=== PATIENT | male | born 1955 | race Caucasian/White ===

== ENCOUNTER 2025-01-25 10:30 | Inpatient (IN) | payer MEDICARE, MEDICAID ==
[~2025-01-25] VITALS: Ht 154.9 cm; Wt 45.8 kg
[2025-01-25 10:38] VITALS: TEMP 97.3
[2025-01-25] MEDS: ONDANSETRON HCL INJ 2MG/ML 2ML 2 MG/ML VIAL IV STA (11:08)
[2025-01-25 11:09] LABS: BASOPHILS % 0.8 % (0.0-1.0); EOSINOPHILS % 2.8 % (0.0-6.0); LYMPHOCYTES % 24.9 % (18.0-39.1); MONOCYTES % 6.3 % (4.4-11.3); NEUTROPHILS % 64.9 % (38.7-80.0); RED CELL DISTRIBUTION WIDTH 12.3 % (11.7-14.4)
[2025-01-25] MEDS: SODIUM CHLORIDE 0.9% 1000ML 1,000 ML IV STA ×2 (11:09)
[2025-01-25 11:21] LABS: INR 1.0
[2025-01-25 11:28] LABS: CORONAVIRUS COVID-19 AG NEGATIVE (NEGATIVE)
[2025-01-25 11:31] LABS: EST GLOMERULAR FILTRATION RATE 83.0 ML/MIN (>=60)
[2025-01-25] MEDS ORDERED: IOPAMIDOL 370 MG/ML 100 ML INFUS..BTL INJ ONE (11:47)
[2025-01-25 12:16] LABS: EPITHELIAL CELLS,URINE FEW /LPF; LEUKOCYTE ESTERASE ,URINE NEGATIVE (NEGATIVE); PROTEIN,URINE DIPSTICK NEGATIVE (NEGATIVE); URINE UROBILINOGEN 0.2 mg/dL (0.2 - 1); WBC,URINE (MAN) 0-5 /HPF (0-5)
[2025-01-25] MEDS ORDERED: ONDANSETRON HCL INJ 2MG/ML 2ML 2 MG/ML VIAL IV PRN (14:00)
[2025-01-25] MEDS: ASPIRIN 81 MG CHEW TAB PO ONE (14:59)
[2025-01-25] MEDS: SODIUM CHLORIDE 0.9% 1000ML 1,000 ML IV SCH (14:59)
[2025-01-25 15:00] VITALS: PULSE 86; RESP 16
[2025-01-25 16:28] VITALS: BP 146/80; PULSE 68; RESP 16; TEMP 99; O2SAT 100
[2025-01-25 20:00] VITALS: BP 140/71; PULSE 69; RESP 16; TEMP 98.9; O2SAT 100
[2025-01-25] MEDS: MELATONIN 5 MG TABLET PO SCH (20:48)
[2025-01-25 23:36] VITALS: BP 115/69; PULSE 53; RESP 18; TEMP 97.9; O2SAT 100
[2025-01-26 03:29] VITALS: BP 135/73; PULSE 51; RESP 18; TEMP 98.1; O2SAT 100
[2025-01-26 05:01] LABS: BASOPHILS % 1.1 % (0.0-1.0); EOSINOPHILS % 7.0 % (0.0-6.0); LYMPHOCYTES % 25.8 % (18.0-39.1); MONOCYTES % 6.7 % (4.4-11.3); NEUTROPHILS % 58.8 % (38.7-80.0); RED CELL DISTRIBUTION WIDTH 12.6 % (11.7-14.4)
[2025-01-26 05:31] LABS: EST GLOMERULAR FILTRATION RATE 85.0 ML/MIN (>=60)
[2025-01-26 07:32] VITALS: BP 132/65; PULSE 60; RESP 18; TEMP 97.6; O2SAT 100
[2025-01-26] MEDS: ASPIRIN 325 MG TAB EC PO SCH (09:01)
[2025-01-26 11:03] VITALS: BP 130/71; PULSE 56; RESP 17; TEMP 97.9; O2SAT 100
[2025-01-26 15:41] VITALS: BP 140/77; PULSE 59; RESP 16; TEMP 98.3; O2SAT 100
[2025-01-26 19:20] VITALS: BP 119/73; PULSE 97; RESP 18; TEMP 98.7; O2SAT 99
[2025-01-26 23:03] VITALS: BP 128/80; PULSE 55; RESP 18; TEMP 98.8; O2SAT 99
[2025-01-27 03:29] VITALS: BP 151/79; PULSE 60; RESP 18; TEMP 98.8; O2SAT 100
[2025-01-27 07:29] VITALS: BP 145/76; PULSE 58; RESP 17; TEMP 97.4; O2SAT 100
[2025-01-27 08:05] VITALS: BP 145/76; PULSE 58; RESP 17; TEMP 97.4; O2SAT 100
[2025-01-27 11:03] VITALS: BP 129/74; PULSE 70; RESP 17; TEMP 98.5; O2SAT 99
[2025-01-27 15:23] VITALS: BP 138/79; PULSE 64; RESP 18; TEMP 97.8; O2SAT 100
[2025-01-27 20:00] VITALS: BP 137/80; PULSE 52; RESP 16; TEMP 98.1; O2SAT 100
[2025-01-28] VITALS (7 sets, daily range): BP systolic 122–152; BP diastolic 68–85; PULSE 55–73; RESP 18–20; TEMP 97.5–98.8; O2SAT 98–100
[2025-01-28] MEDS ORDERED: GADOBENATE DIMEGLUMINE 1 ML IV ONE (13:44)
[2025-01-29] VITALS (7 sets, daily range): BP systolic 134–150; BP diastolic 75–87; PULSE 55–72; RESP 18–19; TEMP 97.7–98.7; O2SAT 95–100
[2025-01-29] MEDS ORDERED: no home meds (14:19)
[2025-01-30] VITALS: BP 127/72; PULSE 56; RESP 18; TEMP 98.2; O2SAT 100
[2025-01-30 04:00] VITALS: BP 142/79; PULSE 53; RESP 18; TEMP 97.9; O2SAT 100
[2025-01-30 05:13] LABS: BASOPHILS % 1.0 % (0.0-1.0); EOSINOPHILS % 5.9 % (0.0-6.0); LYMPHOCYTES % 25.0 % (18.0-39.1); MONOCYTES % 8.9 % (4.4-11.3); NEUTROPHILS % 59.0 % (38.7-80.0); RED CELL DISTRIBUTION WIDTH 12.2 % (11.7-14.4)
[2025-01-30 05:35] LABS: CHOL/HDL RATIO 3.6 (3.9-4.7); LDL CHOLESTEROL 82.0 MG/DL (60-130)
[2025-01-30 05:36] LABS: EST GLOMERULAR FILTRATION RATE 92.0 ML/MIN (>=60)
[2025-01-30 08:50] VITALS: BP_SYST 123; BP_SYST 135; BP_DIAS 71; BP_DIAS 75; PULSE 57; PULSE 71; RESP 18; TEMP 97.7; TEMP 98.4; O2SAT 98; O2SAT 99
[2025-01-30 09:00] VITALS: BP 135/71; PULSE 57; RESP 18; TEMP 97.7; O2SAT 99
[2025-01-30] MEDS ORDERED: SODIUM CHLORIDE 0.9% 100 ML ONE (13:57)
[2025-01-30] MEDS ORDERED: IOPAMIDOL 370 MG/ML 100 ML INFUS..BTL INJ ONE (13:57)
[2025-01-30] MEDS: CLOPIDOGREL BISULFATE 75 MG TAB PO ONE (13:58)
[2025-01-30 16:06] VITALS: BP 129/75; PULSE 65; RESP 20; TEMP 98.8; O2SAT 98
[2025-01-30 20:00] VITALS: BP_SYST 113; BP_SYST 158; BP_DIAS 58; BP_DIAS 61; PULSE 57; PULSE 91; RESP 20; TEMP 98.7; O2SAT 97; O2SAT 98
[2025-01-30] MEDS: ACETAMINOPHEN 325 MG TAB PO PRN (21:11)
[2025-01-30] MEDS: ATORVASTATIN 40 MG TAB PO SCH (21:12)
[2025-01-31 03:46] VITALS: BP 111/61; PULSE 87; RESP 20; TEMP 99; O2SAT 98
[2025-01-31 08:34] VITALS: BP 127/78; PULSE 57; RESP 18; TEMP 98.6; O2SAT 100
[2025-01-31 09:00] VITALS: BP 127/78; PULSE 57; RESP 18; TEMP 98.6; O2SAT 100
[2025-01-31] MEDS: CLOPIDOGREL BISULFATE 75 MG TAB PO SCH (09:13)
[2025-01-31 12:17] VITALS: BP 112/69; PULSE 65; RESP 20; TEMP 98.1; O2SAT 98
[2025-01-31] MEDS ORDERED: ATORVASTATIN CA40 MG PO (13:55)
[2025-01-31] MEDS ORDERED: ASPIRIN EC81 MG PO (13:55)
[2025-01-31] MEDS ORDERED: PLAVIX75 MG PO (13:55)
[2025-01-31 15:02] VITALS: BP 112/69; PULSE 65; RESP 20; TEMP 98.1; O2SAT 98
== END 2025-01-31 16:30 | disposition home or self-care (01) | DRG 64 ==
LOC: ER 10:47 → ERHOLD 14:07 → MED/SURG 15:47
PROVIDERS: ADMIT Internal Medicine; ATTEND Internal Medicine
DX: I63.89 Other cerebral infarction (principal); G93.41 Metabolic encephalopathy; G93.6 Cerebral edema; S32.019A Unspecified fracture of first lumbar vertebra, initial encounter for closed fracture; S32.029A Unspecified fracture of second lumbar vertebra, initial encounter for closed fracture; S22.069A Unspecified fracture of T7-T8 vertebra, initial encounter for closed fracture; S22.079A Unspecified fracture of T9-T10 vertebra, initial encounter for closed fracture; S22.089A Unspecified fracture of T11-T12 vertebra, initial encounter for closed fracture; Z68.1 Body mass index [BMI] 19.9 or less, adult; F05 Delirium due to known physiological condition; R62.7 Adult failure to thrive; E86.0 Dehydration; F01.50 Vascular dementia, unspecified severity, without behavioral disturbance, psychotic disturbance, mood disturbance, and anxiety; G93.9 Disorder of brain, unspecified; I10 Essential (primary) hypertension; J43.8 Other emphysema; E78.5 Hyperlipidemia, unspecified; R00.1 Bradycardia, unspecified; K40.90 Unilateral inguinal hernia, without obstruction or gangrene, not specified as recurrent; R63.4 Abnormal weight loss; Z71.3 Dietary counseling and surveillance; K21.00 Gastro-esophageal reflux disease with esophagitis, without bleeding; R91.1 Solitary pulmonary nodule; D64.9 Anemia, unspecified; R53.81 Other malaise; X58.XXXA Exposure to other specified factors, initial encounter
CPT/HCPCS: 36415; 70450; 70496; 70498; 70553; 71045; 71260; 74177; 80048; 80053; 80061; 81001; 82140; 82550; 83605; 83735; 84484; 85025; 85610; 85730; 87040; 87086; 93005; 93306; 93880; 99284; J2405; J2470; J7030; J7050; Q9967